=== PATIENT | female | born 1985 | race Two or more races ===

== ENCOUNTER 2017-06-01 16:53 | Emergency (ER) | payer MEDICAID ==
[2017-06-01] MEDS ORDERED: NS 1,000 ML IV ONE (17:09)
[2017-06-01] MEDS ORDERED: PROMETHAZINE HCL 25 MG/ML INJ IVP ONE (17:09)
[2017-06-01] MEDS ORDERED: ONDANSETRON 4 MG/2 ML VIAL IVP ONE (17:09)
--- NOTE | 2017-06-01 17:22 | EDPHY ---
H & P Time Seen by Provider: 06/01/17 17:08 HPI/ROS: HPI Nausea and vomiting. 31-year-old female by private vehicle with her and family. This patient reports that yesterday afternoon she developed nausea and had 1 small episode of nonbilious, nonbloody vomiting. She ate [employer] last night which she held down. She reports though that this morning when she got up she continued to feel nauseous and has had 2-3 more episodes, small volume, of nonbilious, nonbloody vomiting. She also reports having left lower quadrant pain. She states that she has had this pain in the past. She describes it as sharp and crampy. Her last menstrual period was about a week ago. Her last meal was last night. She also describes having chills and fever intermittently. No diarrhea. Last bowel movement was 2 days ago. ROS: Constitutional: As above. No weakness. Eyes: No discharge. No changes in vision. ENT: No sore throat. No nasal congestion or rhinorrhea. Respiratory: No cough. No shortness of breath. Cardiac: No chest pain, no palpitations. Gastrointestinal: As above, no diarrhea. Genitourinary: No hematuria. No dysuria or increased frequency with urination. Musculoskeletal: No back pain. No neck pain. No myalgias or arthralgias. Skin: No rashes. Neurological: No headache. No focal weakness or altered sensation. Past medical history: Denies. Social history: Nonsmoker. Here with family. Social alcohol. Physical Exam: General Appearance: Alert, no distress. This patient is responding to questions appropriately and in full sentences. This patient appears well- hydrated and well-nourished. Eyes: Pupils equal and round no pallor or injection. No lid edema, erythema or injection. Respiratory: There are no retractions, lungs are clear to auscultation with good air movement bilaterally. Cardiovascular: Regular rate and rhythm. No murmur. Gastrointestinal: Abdomen is soft with mild left-sided adnexal tenderness on palpation, no masses, bowel sounds normal. No focal tenderness at McBurney's point. No Painting sign. Neurological: Motor sensory function is grossly intact. Cranial nerves are normal. Gait is normal. Skin: Warm and dry, no rashes. Musculoskeletal: No CVA tenderness bilaterally. Extremities are symmetrical. All joints range without pain or impingement. Psychiatric: No agitation. No depression. Database: EKG: Imaging: Abdominal pelvic ultrasound: 1 cm cystic structure in the right ovary. May represent a corpus luteum cyst versus an ectopic. There is also a 5 x 4 x 2 mm cystic structure in the endometrium. May represent an early . No significant free fluid. Results were discussed with staff radiologist Dr. Chun Castillo. Procedures: Emergency department course: IV placed. She was placed on a monitor. Urine specimen obtained. She was started on IV normal saline with 1 L to be given over the next hour. She was given 20 mg of IV Pepcid, 6.25 mg of IV Phenergan and 4 mg of IV Zofran. 6:20 p.m., beta HCG positive. Quantitative assay sent. Patient in ultrasound currently. 6:55 p.m., patient re-evaluated. She is comfortable at this time. She denies any significant pain. She has not had any vaginal bleeding. Positive test discussed with her. Her quantitative beta HCG is in the 900s and therefore below the discriminatory zone. Results of ultrasound pending. 7:15 p.m., spoke with OBGYN Dr. Cain, the patient's case and emergency department workup was discussed in detail with her. Plan will be to start her on Keflex in the emergency department for possible urinary tract infection and then have her follow up with Dr. Cain in the office within the next few days for re-evaluation and repeat ultrasound. 7:25 p.m., patient re-evaluated. Resting comfortably at this time. Vital signs reviewed and are normal. Repeat abdominal exam she is soft, nontender nondistended. I discussed my conversation with OBGYN with her. I discussed the management plan and follow-up plan. She understands this as does her . She understands the importance of her follow-up. She feels comfortable going home. I will prescribe her Phenergan and Zofran for her nausea and vomiting. She was given 500 mg of Keflex in the emergency department and I will prescribe a 5 day course of this medication for possible developing urinary tract infection. Return to emergency department precautions were thoroughly reviewed with her. All of her questions were answered. She was discharged home in good condition Differential Diagnosis: The differential diagnosis on this patient includes but is not limited to food borne illness, viral syndrome. Volvulus, diverticulitis, other surgical pathology unlikely. This represents a partial list of diagnoses considered. These considerations are based on history, physical exam, past history, reassessment and diagnostic testing. Smoking Status: Never smoked Constitutional: Initial Vital Signs Temperature (C) 36.6 C 06/01/17 17:01 Heart Rate 65 06/01/17 17:01 Respiratory Rate 18 06/01/17 17:01 Blood Pressure 166/74 H 06/01/17 17:01 O2 Sat (%) 96 06/01/17 17:01 O2 Delivery Mode Room Air Allergies/Adverse Reactions: No Known Allergies Allergy (Unverified 03/25/15 13:01) Home Medications: Medication Instructions Recorded Ondansetron HCl 4 mg PO Q6 PRN #10 tablet 03/25/15 Cephalexin [Keflex (*)] 500 mg PO Q6 5 Days 06/01/17 Ondansetron Odt [Zofran Odt 4 mg 4 mg PO Q4PRN PRN #10 tab 06/01/17 (*)] Promethazine HCl [Phenergan 25mg 25 mg PO Q4-6PRN PRN #12 tab 06/01/17 (*)] Medical Decision Making - Diagnostics Imaging Results: Imaging Impressions Obstetrics Ultrasound 06/01/17 17:10 Impression: 1. Tiny very early intrauterine gestational sac versus pseudogestational sac measuring 5 x 4 x 2 mm. 2. No pole or yolk sac identified. 3. Right adnexal echogenic thick-walled 1 x 1 x 0.7 cm cystic structure which may represent early ectopic or corpus luteum cyst. 4. Small amount of left adnexal free fluid without ovarian torsion. 5. Recommend follow-up quantitative serum beta hCG and ultrasound as clinically indicated. Findings and recommendations discussed with Emergency Department physician, Dannie Yip MD at 19:06 hour, 06/01/2017. Final report concurs with initial preliminary interpretation. - Data Points Laboratory Results: Laboratory Results 06/01/17 17:40 06/01/17 17:40 06/01/17 06/01/17 06/01/17 Unknown 17:40 17:40 WBC RBC Hgb Hct MCV MCH MCHC RDW Plt Count MPV Neut % (Auto) Lymph % (Auto) [place] % (Auto) Eos % (Auto) Baso % (Auto) Nucleat RBC Rel Count Absolute Neuts (auto) Absolute Lymphs (auto) Absolute Monos (auto) Absolute Eos (auto) Absolute Basos (auto) Absolute Nucleated RBC Immature Gran % Immature Gran # Sodium 137 mEq/L mEq/L (134-144) Potassium 4.2 mEq/L mEq/L (3.5-5.2) Chloride 102 mEq/L mEq/L (97-110) Carbon Dioxide 25 mEq/l mEq/l (22-31) Anion Gap 10 mEq/L mEq/L (8-16) BUN 11 mg/dL mg/dL (7-23) Creatinine 0.7 mg/dL mg/dL (0.6-1.0) Estimated GFR > 60 Glucose 104 mg/dL H mg/dL (70-100) Calcium 9.0 mg/dL mg/dL (8.5-10.4) Beta HCG, Qual POSITIVE Beta HCG, Quant 948.35 mIU/mL H mIU/mL (0-4.83) Urine Color Urine Appearance Urine pH Ur Specific Comfort Urine Protein Urine Ketones Urine Blood Urine Nitrate Urine Bilirubin Urine Urobilinogen Ur Leukocyte Esterase Urine RBC Urine WBC Ur Epithelial Cells Urine Bacteria Urine Mucus Urine Glucose 06/01/17 06/01/17 17:40 17:15 WBC 6.73 10^3/uL 10^3/uL (3.80-9.50) RBC 4.87 10^6/uL 10^6/uL (4.18-5.33) Hgb 14.7 g/dL g/dL (12.6-16.3) Hct 42.8 % % (38.0-47.0) MCV 87.9 fL fL (81.5-99.8) MCH 30.2 pg pg (27.9-34.1) MCHC 34.3 g/dL g/dL (32.4-36.7) RDW 11.5 % % (11.5-15.2) Plt Count 316 10^3/uL 10^3/uL (150-400) MPV 8.6 fL L fL (8.7-11.7) Neut % (Auto) 74.2 % % (39.3-74.2) Lymph % (Auto) 16.6 % % (15.0-45.0) [place] % (Auto) 7.3 % % (4.5-13.0) Eos % (Auto) 1.2 % % (0.6-7.6) Baso % (Auto) 0.6 % % (0.3-1.7) Nucleat RBC Rel Count 0.0 % % (0.0-0.2) Absolute Neuts (auto) 4.99 10^3/uL 10^3/uL (1.70-6.50) Absolute Lymphs (auto) 1.12 10^3/uL 10^3/uL (1.00-3.00) Absolute Monos (auto) 0.49 10^3/uL 10^3/uL (0.30-0.80) Absolute Eos (auto) 0.08 10^3/uL 10^3/uL (0.03-0.40) Absolute Basos (auto) 0.04 10^3/uL 10^3/uL (0.02-0.10) Absolute Nucleated RBC 0.00 10^3/uL 10^3/uL (0-0.01) Immature Gran % 0.1 % % (0.0-1.1) Immature Gran # 0.01 10^3/uL 10^3/uL (0.00-0.10) Sodium Potassium Chloride Carbon Dioxide Anion Gap BUN Creatinine Estimated GFR Glucose Calcium Beta HCG, Qual Beta HCG, Quant Urine Color YELLOW Urine Appearance HAZY Urine pH 6.0 (5.0-7.5) Ur Specific Comfort >= 1.030 (1.002-1.030) Urine Protein NEGATIVE (NEGATIVE) Urine Ketones TRACE H (NEGATIVE) Urine Blood TRACE H (NEGATIVE) Urine Nitrate NEGATIVE (NEGATIVE) Urine Bilirubin NEGATIVE (NEGATIVE) Urine Urobilinogen 1.0 EU EU (0.2-1.0) Ur Leukocyte Esterase TRACE H (NEGATIVE) Urine RBC 1-3 /hpf /hpf (0-3) Urine WBC 1-3 /hpf /hpf (0-3) Ur Epithelial Cells 3+ /lpf H /lpf (NONE-1+) Urine Bacteria 2+ /hpf H /hpf (NONE SEEN) Urine Mucus 3+ /lpf H /lpf (NONE-1+) Urine Glucose NEGATIVE (NEGATIVE) Medications Given: Discontinued Medications Cephalexin HCl (Keflex) 500 mg PO EDNOW ONE PRN Reason: Protocol Stop: 06/01/17 19:32 Last Admin: 06/01/17 19:39 Dose: 500 mg Sodium Chloride (Ns) 1,000 mls @ 0 mls/hr IV EDNOW ONE; Wide Open PRN Reason: Protocol Stop: 06/01/17 17:10 Last Admin: 06/01/17 17:42 Dose: 1,000 mls Ondansetron HCl (Zofran) 4 mg IVP EDNOW ONE Stop: 06/01/17 17:10 Last Admin: 06/01/17 17:42 Dose: 4 mg Promethazine HCl (Phenergan) 6.25 mg IVP EDNOW ONE Stop: 06/01/17 17:10 Last Admin: 06/01/17 17:42 Dose: 6.25 mg Departure - Departure Disposition: Home, Routine, Self-Care Clinical Impression: Vomiting, Positive test, Ovarian cyst versus ectopic , Possible intrauterine , Possible urinary tract infection Condition: Good Instructions: Hyperemesis Gravidarum (ED) Additional Instructions: Read and follow provided instructions. Follow-up with OBGYN, Dr. Cain, as discussed within the 2-3 days. She has your information and will be expecting you to call her office in the morning to schedule an appointment. Take medication as prescribed for nausea and vomiting. Take antibiotic as prescribed for possible urinary tract infection Return to the emergency department for worsening abdominal pain, vomiting and inability to keep fluids down despite medications, fever, back pain, vaginal bleeding, lightheadedness or other serious concerns. Referrals: Nicole Cain DO [Doctor of Osteopathy] - As per Instructions Prescriptions: Cephalexin [Keflex (*)] 500 mg PO Q6 5 Days Ondansetron Odt [Zofran Odt 4 mg (*)] 4 mg PO Q4PRN PRN #10 tab PRN Reason: For Nausea & Vomiting Promethazine HCl [Phenergan 25mg (*)] 25 mg PO Q4-6PRN PRN #12 tab PRN Reason: For Nausea & Vomiting
[2017-06-01 17:23] LABS: COLOR YELLOW; LEUKOCYTE ESTERASE,URINE TRACE (NEGATIVE); NITRITE,URINE NEGATIVE (NEGATIVE)
[2017-06-01 17:28] LABS: BACTERIA 2+ /hpf (NONE SEEN); MUCUS 3+ /lpf (NONE-1+)
[2017-06-01 17:42] LABS: % IMMATURE GRANULYOCYTES 0.1 % (0.0-1.1); ABSOLUTE IMMATURE GRANULOCYTES 0.01 10^3/uL (0.00-0.10); ADD DIFF? NO; ADD MORPH? NO; ADD SCAN? NO; ATYPICAL LYMPHOCYTE FLAG 10 (0-99); FRAGMENT RBC FLAG 0 (0-99); HEMATOCRIT 42.8 % (38.0-47.0); HEMOGLOBIN 14.7 g/dL (12.6-16.3); LEFT SHIFT FLG 20 (0-99); LIPEMIA HEMOLYSIS FLAG 90 (0-99); MEAN CELL HEMOGLOBIN 30.2 pg (27.9-34.1); MEAN CELL HEMOGLOBIN CONCENTR. 34.3 g/dL (32.4-36.7); MEAN CELL VOLUME 87.9 fL (81.5-99.8); MEAN PLATELET VOLUME 8.6 fL (8.7-11.7); PLATELET CLUMPS FLAG 0 (0-99); PLATELET COUNT 316 10^3/uL (150-400); RED BLOOD CELL COUNT 4.87 10^6/uL (4.18-5.33); RED CELL DISTRIBUTION WIDTH 11.5 % (11.5-15.2)
[2017-06-01 17:56] LABS: ANION GAP 10 mEq/L (8-16); CARBON DIOXIDE 25 mEq/l (22-31); CHLORIDE 102 mEq/L (97-110); CREATININE 0.7 mg/dL (0.6-1.0); GLOMERULAR FILTRATION RATE > 60; GLUCOSE 104 mg/dL (70-100); POTASSIUM 4.2 mEq/L (3.5-5.2); SODIUM 137 mEq/L (134-144)
[2017-06-01 19:27] VITALS: BP 109/64; PULSE 67; RESP 16; TEMP 98.2; O2SAT 96
[2017-06-01] MEDS ORDERED: CEPHALEXIN 500 MG CAP PO ONE (19:31)
== END 2017-06-01 19:43 | disposition home or self-care (01) ==
LOC: CED 16:53
DX: R11.10 Vomiting, unspecified (principal); Z33.1 Pregnant state, incidental
CPT/HCPCS: 80048-PO; 81003-PO; 81015-PO; 84702-PO; 84703-PO; 85025-PO; 96374; J2405; J2550